=== PATIENT | female | born 2000 | race Caucasian/White ===

== ENCOUNTER 2019-09-17 00:01 | Inpatient (IN) | payer OTHER ==
--- NOTE | ~2019-09-17 | OR ---
[facility] [address] [place], [place] [address] Draft DATE OF OPERATION: 09/17/2019 SURGEON: La Mayo MD LUNCHROOM AIDE: Vance Bedolla MD PREOPERATIVE DIAGNOSES: Term , failure to descend, intolerance to labor. POSTOPERATIVE DIAGNOSIS: Term , failure to descend, intolerance to labor, delivered. PROCEDURE PERFORMED: Primary section with low segment transverse uterine incision. ANESTHESIA: Spinal. ESTIMATED BLOOD LOSS: 650 mL. DRAINS: Olvera catheter. INDICATIONS AND FINDINGS: The patient is a 19-year-old female, 1, para 0, admitted at 39 and 3/7th weeks for induction. However, on her arrival, she was found already to be martine and changing her cervix. Artificial rupture of membranes was carried out with clear fluid seen. She then became more uncomfortable and requested and received an epidural. Subsequent to this, she had good progress throughout her labor and reached complete. After reaching complete, she began pushing and pushed with good effort in multiple positions. However, the baby came down to +2, +3 station, and at that point did not descend further. The baby was also having recurrent variables as well as some lates. At that point, it was felt that the baby should be tried to be delivered. The patient was counseled and a trial of vacuum was decided upon. Decision was made that if this was not successful that we would proceed immediately to a section. She underwent a vacuum trial with easy application of the vacuum to the baby at a +3 station, MAXIME position. The baby did not descend with three pulls and the course was abandoned. She was then taken to section. At the time of , she was PATIENT NAME: SUZY GUNTER OPERATIVE REPORT DATE OF : 98 REPORT #: [id number] PHYSICIAN: LA MAYO MD PCP: NO PRIMARY CARE PHYSICIAN REPORT IS CONFIDENTIAL AND NOT TO BE RELEASED WITHOUT AUTHORIZATION [facility] [address] [place], [place] [address] Draft delivered of a little girl from the MAXIME position via lower segment transverse uterine incision with Apgars of 8 and 9 and weight of 8 pounds 9 ounces. There was a loop of cord at the shoulder. The uterus, tubes, ovaries, and placenta otherwise were normal. The cord gases were 73 and 77. DESCRIPTION OF PROCEDURE: The patient was prepped and draped in the supine position. A Pfannenstiel skin incision was made and carried down through the fascia with the incision extended laterally. The inferior and superior fascial flaps were then created. The muscles bluntly divided and the peritoneum opened sharply and the incision extended superiorly and inferiorly. The Corbin retractor was then placed. The uterine incision was made at the upper aspect of the peritoneal reflection. The baby was delivered with the above findings and handed off to the pediatric staff in attendance. The placenta was removed manually. The uterus was explored with a lap tape assuring no remaining fragments. The uterine incision was then closed with 0 Monocryl. The first layer was a running locking stitch and the second was a vertical imbricating stitch. Additional [id number]-[id number] were required in the midportion for control of bleeding. Following this, the abdomen was irrigated and inspected and there was a bleeding point near the peritoneal edge on the patient's left side, which did not respond to cautery and a slxzhd-bh-[id number] suture of the Monocryl was used to control this bleeding as well. Following this, the retractor was removed and the peritoneum identified. An ACell graft was laid over the lower segment to aid in healing. The peritoneum was then closed with a running suture of 3-0 Vicryl. The muscles were brought together with interrupted sutures of 0 Vicryl. Bleeding points were controlled with cautery. This layer was then irrigated as well and good hemostasis was noted. ACell powder was sprinkled over the muscles to aid in healing. The fascia was closed from each angle to the midline with a running suture of 0 Vicryl. The subcu layer was irrigated and inspected and bleeding points controlled with cautery. The deep space was closed with interrupted sutures of 3-0 Vicryl. The skin was closed with cecy. All sponge and needle counts were correct. She tolerated the procedure well and was taken to the recovery room in good condition. La Mayo MD PJW/MODL /[id number] PATIENT NAME: SUZY GUNTER OPERATIVE REPORT DATE OF : 98 REPORT #: [id number] PHYSICIAN: LA MAYO MD PCP: NO PRIMARY CARE PHYSICIAN REPORT IS CONFIDENTIAL AND NOT TO BE RELEASED WITHOUT AUTHORIZATION [address] [address] Draft cc: Vance Bedolla MD Copies: VANCE BEDOLLA MD ~ PATIENT NAME: GUNTERSUZY OPERATIVE REPORT DATE OF : 98 REPORT #: [id number] PHYSICIAN: LA MAYO MD PCP: NO PRIMARY CARE PHYSICIAN REPORT IS CONFIDENTIAL AND NOT TO BE RELEASED WITHOUT AUTHORIZATION
--- OUTSIDE RECORDS SUMMARY | ~2019-09-17 | XMS | Encounter Summary ---
Demographics + + + | Address | [address] | | | [place] [address] | + + + | Home Phone | | + + + | Preferred Language | Unknown | + + + | Marital Status | | + + + | Taoist Affiliation | Unknown | + + + | Race | Unknown | + + + | Ethnic Group | Unknown | + + + Author + + + | Author | [facility] | | | and [place] | + + + | Organization | [facility] | | | and [place] | + + + | Address | Unknown | + + + | Phone | Unavailable | + + + Care Team Providers + +------+ + | Care Curriculum Director Name | Role | Phone | + +------+ + PCP | Unavailable | + +------+ + Encounter Details +--------+ + + + + | Date | Type | Department | Care Team | Description | +--------+ + + + + | 01/22/ | Orders Only | [facility] | Conversion | | | 2019 | | CONVERSION [address] | Transaction, | | | | | [address] | Provider Unknown | | | | | [place], [place] | [phone] | | | | | [address] | | | | | | [phone] | | | +--------+ + + + + Social History + +-------+ +--------+------+ | Tobacco Use | Types | Packs/Day | Years | Date | | | | | Used | | + +-------+ +--------+------+ | Never Assessed | | | | | + +-------+ +--------+------+ + + + | Sex Assigned at | Date Recorded | | | | + + + | Not on file | | + + + + + + + | Job Start Date | Occupation | Industry | + + + + | Not on file | Not on file | Not on file | + + + + + + + + | Travel History | Travel Start | Travel End | + + + + + + | No recent travel history available. | + + documented as of this encounter Plan of Treatment Not on filedocumented as of this encounter Visit Diagnoses Not on filedocumented in this encounter"
--- OUTSIDE RECORDS SUMMARY | ~2019-09-17 | XMS | Clinical Summary ---
Demographics + + + | Address | [address] | | | [place] [address] | + + + | Home Phone | | + + + | Preferred Language | Unknown | + + + | Marital Status | | + + + | Gnosticist Affiliation | Unknown | + + + | Race | Unknown | + + + | Ethnic Group | Unknown | + + + Author + + + | Author | [facility] | | | and [place] | + + + | Organization | [facility] | | | and [place] | + + + | Address | Unknown | + + + | Phone | Unavailable | + + + Care Team Providers + +------+ + | Care Policy And Planning Manager Name | Role | Phone | + +------+ + PCP | Unavailable | + +------+ + Allergies No Known Allergies Medications + + + +---------+------+------+-------+ | Medication | Sig | Dispensed | Refills | Star | End | Statu | | | | | | t | Date | s | | | | | | Date | | | + + + +---------+------+------+-------+ | montelukast | | | 0 | 11/1 | | Activ | | (SINGULAIR) 10 mg | | | | 5/20 | | e | | tablet | | | | 18 | | | + + + +---------+------+------+-------+ | raNITIdine | | | 0 | 11/1 | | Activ | | (ZANTAC) 150 mg | | | | 5/20 | | e | | tablet | | | | 18 | | | + + + +---------+------+------+-------+ | 27-0.8 mg | Take 1 tablet by | | 0 | 05/1 | | Activ | | multivitamin tablet | mouth daily with | | | 4/20 | | e | | | breakfast. | | | 19 | | | + + + +---------+------+------+-------+ Active Problems + + + | | Comments | + + + | Yes | | + + + No additional problems on file Social History + +-------+ +--------+------+ | Tobacco Use | Types | Packs/Day | Years | Date | | | | | Used | | + +-------+ +--------+------+ | Never Assessed | | | | | + +-------+ +--------+------+ + + + | | Comments | + + + | Yes | | + + + + + + | Sex Assigned at [...] recent travel history available. | + + Last Filed Vital Signs + + + + + | Vital Sign | Reading | Time Taken | Comments | + + + + + | Blood Pressure | 106/54 | 01/22/2019 11:03 AM | | | | | PDT | | + + + + + | Pulse | 110 | 01/22/2019 11:03 AM | | | | | PDT | | + + + + + | Temperature | 37.2 C (98.9 F) | 01/22/2019 11:03 AM | | | | | PDT | | + + + + + | Respiratory Rate | 18 | 01/22/2019 11:03 AM | | | | | PDT | | + + + + + | Oxygen Saturation | - | - | | + + + + + | Inhaled Oxygen | - | - | | | Concentration | | | | + + + + + | Weight | 77.1 kg (170 lb) | 01/22/2019 11:03 AM | | | | | PDT | | + + + + + | Height | 167.6 cm (5' 6") | 01/22/2019 11:03 AM | | | | | PDT | | + + + + + | Body Mass Index | 27.44 | 01/22/2019 11:03 AM | | | | | PDT | | + + + + + Plan of Treatment + + + + + | Health Maintenance | Due Date | Last Done | Comments | + + + + + | Well Child Check | | | | | | 1 | | | + + + + + | Vaccine: | | | | | Dtap/Tdap/Td (1 - | 9 | | | | Tdap) | | | | + + + + + | Cervical Cancer | | | | | Screening (Pap) | 9 | | | + + + + + | Vaccine: Influenza | | | | | (#1) | 9 | | | + + + + + Results Not on filefrom Last 3 Months
--- OUTSIDE RECORDS SUMMARY | ~2019-09-17 | XMS | Clinical Summary ---
Demographics + + + | Address | [address] | | | [place] [address] | + + + | Home Phone | | + + + | Preferred Language | Unknown | + + + | Marital Status | | + + + | Gnosticism Affiliation | Unknown | + + + | Race | Unknown | + + + | Ethnic Group | Unknown | + + + Author + + + | Author | [email or web address] (Historical as of | | | 04-27-19) | + + + | Organization | [email or web address] (Historical as of | | | 04-27-19) | + + + | Address | Unknown | + + + | Phone | Unavailable | + + + Support + + + + + | Name | Relationship | Address | Phone | + + + + + | Lata Callaway | ECON | [address] | | | [place] | | [place] | | | | | [address] | | + + + + + | Fariha Carey | ECON | Unknown | | + + + + + Care Team Providers + +------+ + | Care Bed Spring Maker Name | Role | Phone | + +------+ + PP | Unavailable | + +------+ + Allergies No Known Allergies Current Medications + + +-------+---------+------+------+-------+ | Prescription | Sig. | Disp. | Refills | Star | End | Statu | | | | | | t | Date | s | | | | | | Date | | | + + +-------+---------+------+------+-------+ | montelukast | | | | 11/1 | | Activ | | (SINGULAIR) 10 MG | | | | 5/20 | | e | | tablet | | | | 18 | | | + + +-------+---------+------+------+-------+ | ranitidine | | | | 11/1 | | Activ | | (ZANTAC) 150 MG | | | | 5/20 | | e | | tablet | | | | 18 | | | + + +-------+---------+------+------+-------+ | Vit-Fe | Take 1 tablet by | | | | | Activ | | Fumarate-FA | mouth daily with | | | | | e | | ( | breakfast. | | | | | | | MULTIVITAMIN & | | | | | | | | MINERALS W IRON/FA) | | | | | | | | 27-0.8 MG TABS | | | | | | | | tablet | | | | | | | + + +-------+---------+------+------+-------+ Active Problems Not on file Social History + +-------+ +--------+------+ | Tobacco Use | Types | Packs/Day | Years | Date | | | | | Used | | + +-------+ +--------+------+ | Never Assessed | | | | | + +-------+ +--------+------+ + + + + | Currently | Estimated Date of Delivery | Comments | + + + + | Yes | | | + + + + + + + | Sex Assigned at | Date Recorded | | | | + + + | Not on file | | + + + Last Filed Vital Signs + + + + | Vital Sign | Reading | Time Taken | + + + + | Blood Pressure | 106/54 | 01/22/2019 10:59 AM PDT | + + + + | Pulse | 110 | 01/22/2019 10:59 AM PDT | + + + + | Temperature | 37.2 C (98.9 F) | 01/22/2019 10:59 AM PDT | + + + + | Respiratory Rate | 18 | 01/22/2019 10:59 AM PDT | + + + + | Oxygen Saturation | 98% | 01/22/2019 10:59 AM PDT | + + + + | Inhaled Oxygen | - | - | | Concentration | | | + + + + | Weight | 77.1 kg (170 lb) | 01/22/2019 10:59 AM PDT | + + + + | Height | 167.6 cm (5' 6") | 01/22/2019 10:59 AM PDT | + + + + | Body Mass Index | 27.44 | 01/22/2019 10:59 AM PDT | + + + + Plan of Treatment + + + + + | Health Maintenance | Due Date | Last Done | Comments | + + + + + | Well Child Check | | | | | | 1 | | | + + + + + | Vaccine: | | | | | Dtap/Tdap/Td (1 - | 7 | | | | Tdap) | | | | + + + + + | Cervical Cancer | | | | | Screening (Pap) | 9 | | | + + + + + | Vaccine: Influenza | | | | | (#1) | 9 | | | + + + + + Results Not on filefrom Last 3 Months Insurance + +--------+ +------+-------+---------+ | Payer | Benefi | Subscriber | Type | Phone | Address | | | t Plan | ID | | | | | | / | | | | | | | Group | | | | | + +--------+ +------+-------+---------+ | [employer] | ODS | [id number] | | | | | | HEALTH | | | | | | | PLAN | | | | | + +--------+ +------+-------+---------+ | [employer] [facility] | PROVID | [id number] | PPO | | | | PLAN | ENCE | | | | | | | HEALTH | | | | | | | PLAN | | | | | + +--------+ +------+-------+---------+ + +--------+ +--------+ + + | Guarantor Name | Accoun | Relation to | Date | Phone | Billing Address | | | t Type | Patient | of | | | | | | | | | | + +--------+ +--------+ + + | LATA CALLAWAY | Person | Self [birth year] | Home: | [address] | | | al/Fam | | 1999 | [phone] | [place] | | | edith | | [phone] | + +--------+ +--------+ + +
--- NOTE | 2019-09-17 12:53 | PR ---
[facility] [address] [facility] [place], [place] [address] Signed Progress Notes IP Datetime Report Generated by FOX: 09/17/2019 12:53 PROGRESS NOTES: [id number] Impression: Normal progression of labor Procedures: Sterile Vag Exam Plan: Continue present management Informed Consent Obtain: Vaginal Delivery; Induction of Labor; Risks, Benefits and Alternatives Discussed VITAL SIGNS: [id number] Vital Signs: Reviewed; Within Normal Limits EXAM: [id number] Dilatation: 7.0 Effacement: 90 Station: -1 Uterine Contractions: q 2 to 3 min MEMBRANES: [id number] Membrane Status: Intact Comments: Progressing well. Will continue with position changes. Fetus A: [id number] FHR Baseline: 135 Variability: Moderate 6-25bpm Accelerations: 15X15 Decelerations: None FHR Category: Category I Presentation: Vertex Comments on Fetus A: No evidence of metabolic acidosis Fetus B: [id number] Signing Physician: La Mayo MD Copies: ~ *Electronically Signed* 09/17/19 1253 LA MAYO MD PATIENT NAME: SUZY GUNTER PROGRESS NOTE DATE OF : 98 PHYSICIAN: LA MAYO MD RPT #: [id number] REPORT IS CONFIDENTIAL AND NOT TO BE RELEASED WITHOUT AUTHORIZATION
--- NOTE | 2019-09-17 18:20 | NUR ---
09/17/19 1820 Katerina Vargas BABY TO BREAST WITH PHONG NEAL'S ASSISTANCE. MOTHER IS REPORTING DISCOMFORT WITH FUNDAL MASSAGE.
--- NOTE | 2019-09-18 12:41 | PR ---
[facility] [address] [facility] [place], [place] [address] Signed PP Progress Notes Datetime Report Generated by FOX: 09/18/2019 12:41 SUBJECTIVE: [id number] Pain: Within normal limits Nausea/Vomiting: Denies Vital Signs: [id number] Vital Signs: Reviewed; Within Normal Limits EXAM: [id number] Cardiovascular: Normal Respiratory: Normal Abdomen/Uterus: Abnormal Lochia: Normal Vulva/Perineum: Not Done Breasts: Not Done CVA Tenderness: Not Done Extremities: Normal Incision: Normal Progress: Normal Exam Comments: Abdomen with active BS. Fundus firm, NT @ U-1. H/H 10/29.5, WBC 20.7, plat 161k IMPRESSION/PLAN/PROCEDURES: [id number] Impression: Normal progression Other Plans: D/C orantes and IV fluids this afternoon, increase ambulation Progress Notes: Doing well. Will increase her activity. Signing Physician: La Mayo MD Copies: ~ *Electronically Signed* 09/18/19 1241 LA MAYO MD PATIENT NAME: LYRICSUZY PROGRESS NOTE DATE OF : 98 PHYSICIAN: LA MAYO MD RPT #: [id number] REPORT IS CONFIDENTIAL AND NOT TO BE RELEASED WITHOUT AUTHORIZATION
--- NOTE | 2019-09-19 12:10 | PR ---
[facility] [address] [facility] [place], [place] [address] Signed PP Progress Notes Datetime Report Generated by FOX: 09/19/2019 12:10 SUBJECTIVE: [id number] Pain: Within normal limits Nausea/Vomiting: Denies Vital Signs: [id number] Vital Signs: Reviewed; Within Normal Limits EXAM: [id number] Cardiovascular: Not Done Respiratory: Not Done Abdomen/Uterus: Abnormal Lochia: Normal Vulva/Perineum: Not Done Breasts: Not Done CVA Tenderness: Not Done Extremities: Normal Incision: Normal Progress: Abnormal Exam Comments: Abdomen with active BS. Fundus firm, NT @ U-1. IMPRESSION/PLAN/PROCEDURES: [id number] Impression: Normal progression Plan: consult Other Plans: D/C orantes and IV fluids this afternoon, increase ambulation Progress Notes: Overall doing well but having issues with breast feeding. Signing Physician: La Mayo MD Copies: ~ *Electronically Signed* 09/19/19 1210 LA MAYO MD PATIENT NAME: SUZY GUNTER PROGRESS NOTE DATE OF : 98 PHYSICIAN: LA MAYO MD RPT #: [id number] REPORT IS CONFIDENTIAL AND NOT TO BE RELEASED WITHOUT AUTHORIZATION
--- NOTE | 2019-09-20 07:22 | PR ---
[facility] [address] [facility] [place], [place] [address] Signed PP Progress Notes Datetime Report Generated by FOX: 09/20/2019 07:22 SUBJECTIVE: [id number] Pain: Within normal limits Nausea/Vomiting: Denies Vital Signs: [id number] Vital Signs: Reviewed; Within Normal Limits EXAM: [id number] Cardiovascular: Not Done Respiratory: Not Done Abdomen/Uterus: Abnormal Lochia: Normal Vulva/Perineum: Not Done Breasts: Not Done CVA Tenderness: Not Done Extremities: Normal Incision: Normal Progress: Normal Exam Comments: Abdomen with active BS. Fundus firm, NT @ U-1. IMPRESSION/PLAN/PROCEDURES: [id number] Impression: Normal progression Plan: Remove cecy; Discharge Other Plans: D/C orantes and IV fluids this afternoon, increase ambulation Procedures: None Progress Notes: Doing well. She is ready for D/C. Signing Physician: La Mayo MD Copies: ~ *Electronically Signed* 09/20/19721 LA MAYO MD PATIENT NAME: KUNAL GUNTERGREGORIO Barnes PROGRESS NOTE DATE OF : 98 PHYSICIAN: LA MAYO MD RPT #: [id number] REPORT IS CONFIDENTIAL AND NOT TO BE RELEASED WITHOUT AUTHORIZATION
== END 2019-09-20 11:50 | disposition home or self-care (01) | DRG 788 ==
LOC: FBC 00:01 → MS 09-19 17:21 → FBC 09-19 17:37
PROVIDERS: ADMIT Obstetrics & Gynecology
PROC: 10907ZC Drainage of Amniotic Fluid, Therapeutic from Products of Conception, Via Natural or Artificial Opening (ICD-10-PCS; 2019-09-17)
PROC: 00HU33Z Insertion of Infusion Device into Spinal Canal, Percutaneous Approach (ICD-10-PCS; 2019-09-17)
PROC: 3E0R3BZ Introduction of Anesthetic Agent into Spinal Canal, Percutaneous Approach (ICD-10-PCS; 2019-09-17)
PROC: 10D00Z1 Extraction of Products of Conception, Low, Open Approach (ICD-10-PCS; principal; 2019-09-17 17:23)
DX: O32.4XX0 Maternal care for high head at term, not applicable or unspecified (principal); O76 Abnormality in fetal heart rate and rhythm complicating labor and delivery; O66.5 Attempted application of vacuum extractor and forceps; O69.82X0 Labor and delivery complicated by other cord entanglement, without compression, not applicable or unspecified; Z37.0 Single live birth; Z3A.39 39 weeks gestation of pregnancy; O99.52 Diseases of the respiratory system complicating childbirth; J45.20 Mild intermittent asthma, uncomplicated; Z79.899 Other long term (current) drug therapy
CPT/HCPCS: 01961; 36415; 82803; 85027; A9270; J0690; J1885; J2250; J2274; J2590; J2795; J3010; J7121

== ENCOUNTER 2022-08-30 08:37 | Inpatient (IN) | payer OTHER ==
[~2022-08-30] VITALS: Ht 167.6 cm; Wt 76.7 kg
--- NOTE | 2022-09-01 08:41 | NUR ---
09/01/22 0841 Donna Driscoll 0808 PT ARRIVED TO ROOM WITH FAMILY IN ROOM. PT DEINES NAUSEA AND PAIN VSS. HOB INCREASED SLIGHTLY. IV IN LEFT HAND AND INFUSING LR AND SITE WNL. 0835 BABY TO CHEST WITH FBC RN. HOB INCREASED SLIGHTLY AND SMALL SIP OF WATER GIVEN PER REQUEST. ONE MID SIZE CLOT NOTED WITH FUNDAL CHECK, FBC RN AWARE.
--- NOTE | 2022-09-01 20:32 | OR ---
[facility] [address] [place], [place] [address] Signed DATE OF OPERATION: 09/01/2022 SURGEON: La Mayo MD HAND HARDENER: PRERNA Cheney, DO PREOPERATIVE DIAGNOSIS: Term , previous section. POSTOPERATIVE DIAGNOSIS: Term , previous section, delivered, very thin lower segment. ANESTHESIA: Spinal. ESTIMATED BLOOD LOSS: 700 mL. DRAINS: Olvera catheter. INDICATIONS AND FINDINGS: The patient is a 22-year-old female 2, para 1, admitted at 39 weeks for repeat section. Her has been uncomplicated. At the time of surgery, she did have a very thin lower segment, but otherwise the uterus, tubes, ovaries, and placenta were normal. She was delivered of a little boy from the ROT position via LSTUI with Apgars 9/9, wt 8'11". DESCRIPTION OF PROCEDURE: The patient was prepped and draped in the supine position. The Pfannenstiel skin incision was made through the prior scar. It was carried down to the fascia. The incision was extended laterally. The inferior and superior fascial flaps were then created. The muscles were sharply divided and the peritoneum incised sharply and the incision extended bluntly. The Corbin retractor was then placed. The uterine incision was made over the thin area with immediate spill of clear amniotic fluid. The baby was handed off to the pediatric staff in attendance. The placenta was removed manually and the uterus explored with a lap tape assuring no remaining fragments. The edges of the incision were identified and the uterus closed in 2 layers using 0 Monocryl. The first layer was a running locking stitch and the second a vertical imbricating stitch. The Electronically Signed By: LA MAYO MD 09/01/222031 PATIENT NAME: SUZY GUNTER OPERATIVE REPORT DATE OF : 98 REPORT #: [id number] PHYSICIAN: LA MAYO MD PCP: Moreno Alejandre DO REPORT IS CONFIDENTIAL AND NOT TO BE RELEASED WITHOUT AUTHORIZATION [facility] [address] [place], [place] [address] Signed abdomen was irrigated and good hemostasis was noted. There was a thin omental adhesion to the left lower quadrant and this was divided as well. The retractor was removed. The peritoneum was then identified and closed with a running suture of 3-0 Vicryl. The muscles were brought together with interrupted sutures of 0 Vicryl. Bleeding points on the muscles were controlled with cautery. This area was also irrigated and good hemostasis was noted. The fascia was closed from each angle to the midline with a running suture of 0 Vicryl. The subcu space was irrigated and bleeding points were controlled with cautery. The deep space was closed with interrupted sutures of 3-0 Vicryl and the skin was closed with cecy. All sponge and needle counts were correct. She tolerated the procedure well and was taken to the recovery room in good condition. MD FERNY Coon/EVELYNEL /[id number] cc: Aaliyah Cheney DO Copies: AALIYAH CHENEY (PRERNA) ~ Electronically Signed By: LA MAYO MD 09/01/222031 PATIENT NAME: SUZY GUNTER OPERATIVE REPORT DATE OF : 98 REPORT #: [id number] PHYSICIAN: LA MAYO MD PCP: Moreno Alejandre DO REPORT IS CONFIDENTIAL AND NOT TO BE RELEASED WITHOUT AUTHORIZATION
--- NOTE | 2022-09-02 07:44 | PR ---
[facility] [address] [facility] [place], [place] [address] Signed PP Progress Notes Datetime Report Generated by CPN: 09/02/2022 07:44 SUBJECTIVE: [id number] Pain: Within Normal Limits Nausea/Vomiting: Denies Vital Signs: [id number] Vital Signs: Reviewed; Within Normal Limits Cardiovascular: Normal Respiratory: Normal Abdomen/Uterus: Abnormal Lochia: Normal Vulva/Perineum: Not Done Breasts: Not Done CVA Tenderness: Not Done Extremities: Normal Incision: Normal Progress: Normal Exam Comments: Abdomen with active BS. Fundus firm, NT @ U-2. H/H 11/33.2, WBC 17.8, plat 186k IMPRESSION/PLAN/PROCEDURES: [id number] Impression: Normal Progression Other Plans: ambulate, shower Progress Notes: Doing well. Will increase activity with probable D/C in am. Signing Physician: La Mayo MD Copies: ~ *Electronically Signed* 09/02/22 0744 LA MAYO MD PATIENT NAME: SUZY GUNTER PROGRESS NOTE DATE OF : 98 PHYSICIAN: LA MAYO MD RPT #: [id number] REPORT IS CONFIDENTIAL AND NOT TO BE RELEASED WITHOUT AUTHORIZATION
--- NOTE | 2022-09-03 09:32 | PR ---
[facility] [address] [place], [place] [address] Signed PP Progress Notes Datetime Report Generated by CPN: 09/03/2022 09:32 SUBJECTIVE: [id number] Pain: Within Normal Limits Nausea/Vomiting: Denies Flatus: Yes Bowel Movement: Yes Vital Signs: [id number] Vital Signs: Reviewed; Within Normal Limits Cardiovascular: Normal Respiratory: Normal Abdomen/Uterus: Abnormal Lochia: Normal Vulva/Perineum: Not Done Breasts: Not Done CVA Tenderness: Not Done Extremities: Normal Incision: Normal Progress: Normal Exam Comments: Abdomen with active BS. Fundus firm, NT @ U-1. IMPRESSION/PLAN/PROCEDURES: [id number] Impression: Normal Progression Plan: Remove [place]; Discharge Other Plans: ambulate, shower Procedures: None Progress Notes: Doing well. She is ready for D/C. Signing Physician: La Mayo MD Copies: ~ *Electronically Signed* 09/03/22 0932 LA MAYO MD PATIENT NAME: SUZY GUNTER PROGRESS NOTE DATE OF : 98 PHYSICIAN: LA MAYO MD RPT #: [id number] REPORT IS CONFIDENTIAL AND NOT TO BE RELEASED WITHOUT AUTHORIZATION
== END 2022-09-03 11:40 | disposition home or self-care (01) | DRG 788 ==
LOC: FBC 09-01 05:01
PROVIDERS: ADMIT Obstetrics & Gynecology; ATTEND Obstetrics & Gynecology
PROC: 10D00Z1 Extraction of Products of Conception, Low, Open Approach (ICD-10-PCS; principal; 2022-09-01 07:30)
DX: O34.211 Maternal care for low transverse scar from previous cesarean delivery (principal); Z3A.39 39 weeks gestation of pregnancy; Z37.0 Single live birth; Z67.40 Type O blood, Rh positive
CPT/HCPCS: 01961; 36415; 85027; 86850; 86900; 86901; A9270; J0131; J0690; J1100; J1885; J2001; J2274; J2405; J2590; J3010; J7121